=== PATIENT | female | born 1990 | race Caucasian/White ===

== ENCOUNTER 2023-05-28 10:35 | Emergency (ER) | payer BC ==
[2023-05-28] MEDS ORDERED: diphenhydrAMINE 50 MG/ML SDV IVPUSH ONE (10:59)
[2023-05-28] MEDS ORDERED: methylPREDNISolone Sodium Succinate 40 MG/1 ML SDV IVPUSH ONE (10:59)
[2023-05-28] MEDS ORDERED: Famotidine 20 MG/2 ML SDV IVPUSH ONE (11:00)
[2023-05-28] MEDS ORDERED: Sodium Chloride 0.9% 10 ML Syringe FLUSH PRN (11:00)
[2023-05-28] MEDS ORDERED: Famotidine 20 MG Tab PO ONE (11:20)
== END 2023-05-28 12:07 | disposition home or self-care (01) ==
LOC: LB.ED 10:35
DX: T63.461A Toxic effect of venom of wasps, accidental (unintentional), initial encounter (principal)
CPT/HCPCS: 96374; 96375; 99282; 99282-25; A9270-GY; J1200; J2920